=== PATIENT | female | born 1975 | race Hispanic/Latino ===

== ENCOUNTER 2016-05-23 21:47 | Inpatient (IN) | payer MEDICAID, OTHER ==
[2016-05-23 21:47] VITALS: BMI 32.5
[2016-05-23 22:14] VITALS: O2SAT 95
--- NOTE | 2016-05-23 22:21 | C.PDOC ---
History Of Present Illness <Vita Busby - Last Filed: 05/23/16 22:18> <Warren Day - Last Filed: 05/24/16 00:53> 40 y/o female comes to ED requesting detox from alcohol and xanax. pt sts last drink was last night and she took xanax earlier today. pt initially denies physical complaints, however sts she is suiciidal when i tell her there are no detox beds available, 'i will kill myself if you send me home tonight'. crisis team notified. (Vita Busby) <Vita Busby - Last Filed: 05/23/16 22:18> <Warren Day - Last Filed: 05/24/16 00:53> Time Seen by Provider: 05/23/16 22:05 Chief Complaint (Nursing): Medical Clearance Past Medical History Reviewed: Historical Data, Nursing Documentation, Vital Signs - Medical History PMH: Anxiety, Depression, Personality Disorder (Borderline), Post Traumatic Stress Disorder Denies: Alzheimer's Disease, Asthma, Atrial Fibrillation, Bronchitis, Cardia Arrhythmia, CHF, COPD, Dementia, Diabetes, Emphysema, Hepatitis, HIV, HTN, Hypercholesterolemia, Migraine, Mitral Valve Prolapse, Multiple Sclerosis, Parkinson's Disease, Peripheral Edema, Pneumonia, Pulmonary Embolism, Chronic Kidney Disease, Schizophrenia, Seizures, Sexually Transmitted Disease, Sleep Apnea, TIA Surgical History: Denies: Pacemaker Family History: States: Unknown Family Hx - Social History Hx Tobacco Use: Yes Hx Alcohol Use: Yes Hx Substance Use: Yes (DAILY) - Immunization History Hx Tetanus Toxoid Vaccination: No Hx Influenza Vaccination: No Hx Pneumococcal Vaccination: No <Vita Busby - Last Filed: 05/23/16 22:18> Vital Signs: Last Vital Signs Temp 97.7 F 05/23/16 21:59 Pulse 83 05/23/16 21:59 Resp 18 05/23/16 21:59 BP 138/85 05/23/16 21:59 Pulse Ox 95 05/23/16 23:03 - [facility] Procedures ALCOHOL DETOXIFICATION (05/02/14) INDIVID PSYCHOTHERAP NEC (07/18/14) OTHER GROUP THERAPY (12/10/13) PSYCHIAT DRUG THERAP NEC (07/18/14) Review Of Systems Constitutional: Negative for: Fever, Chills Cardiovascular: Negative for: Chest Pain, Palpitations Respiratory: Negative for: Cough, Shortness of Breath Gastrointestinal: Negative for: Nausea, Vomiting, Abdominal Pain Genitourinary: Negative for: Dysuria, Frequency Skin: Negative for: Rash <Vita Busby - Last Filed: 05/23/16 22:18> Physical Exam - Physical Exam Appears: Non-toxic, No Acute Distress Skin: Normal Color, Warm, Dry, Ecchymosis (multiple ecchymoses to upper and lower extremities) Head: Atraumatic, Normacephalic Eye(s): bilateral: Normal Inspection Oral Mucosa: Moist Chest: Symmetrical, No Deformity, No Tenderness Cardiovascular: Rhythm Regular, No Murmur Respiratory: Normal Breath Sounds, No Rales, No Rhonchi, No Stridor, No Wheezing Gastrointestinal/Abdominal: Bowel Sounds, Soft, No Tenderness Neurological/Psych: Oriented x3, Normal Speech, Normal Cognition, Normal Motor, Normal Sensation <Vita Busby - Last Filed: 05/23/16 22:18> ED Course And Treatment O2 Sat by Pulse Oximetry: 95 <Vita Busby - Last Filed: 05/23/16 22:18> - Laboratory Results Result Diagrams: 05/23/16 23:07 05/23/16 23:07 <Warren Day - Last Filed: 05/24/16 00:53> Medical Decision Making <Vita Busby - Last Filed: 05/23/16 22:18> <Warren Day - Last Filed: 05/24/16 00:53> Medical Decision Makin40 y/o female with xanax and alcohol dependence for detox; stated she was suicidal when no detox beds available. pt now on 1:1, crisis team aware and needs medical clearance for psych eval. (Vita Busby) Disposition <Vita Busby - Last Filed: 05/23/16 22:18> - Disposition Disposition Time: 00:51 <Warren Day - Last Filed: 05/24/16 00:53> - Disposition Disposition: HOSPITALIZED Condition: STABLE - Clinical Impression Clinical Impression: Bipolar affective disorder, Severe alcohol dependence
[2016-05-23 23:09] LABS: BASO # 0.1 K/uL (0.0-0.2); BASO % 0.9 % (0.0-2.0); EOS # 0.3 K/uL (0.0-0.7); EOS % 3.6 % (0.0-4.0); HEMATOCRIT 34.5 % (34.0-47.0); LYMPH # 2.1 K/uL (1.0-4.3); LYMPH % 24.9 % (20.0-40.0); MEAN CELL VOLUME 85.9 fL (81.0-99.0); MEAN CORPUSCULAR HGB CONC 33.7 g/dL (33.0-37.0); MEAN PLATELET VOLUME 7.4 fL (7.2-11.7); MONO # 0.5 K/uL (0.0-0.8); MONO % 6.4 % (0.0-10.0); RED CELL DISTRIBUTION WIDTH 17.1 % (11.5-14.5); WHITE BLOOD COUNT 8.3 K/uL (4.8-10.8)
[2016-05-23 23:18] LABS: CHLORIDE 99 mmol/L (98-107); POTASSIUM 3.7 mmol/L (3.6-5.2); SODIUM 137 mmol/L (132-148)
[2016-05-23 23:20] LABS: GFR AFRICAN-AMERICAN > 60
[2016-05-23 23:21] LABS: ALB/GLOB RATIO 1.3 (1.0-2.1); ALKALINE PHOSPHATASE 63 U/L (38-126); ALT/SGPT 40 U/L (9-52); AST/SGOT 43 U/L (14-36); BILIRUBIN,TOTAL 0.4 mg/dL (0.2-1.3); BLOOD UREA NITROGEN 8 mg/dL (7-17); CALCIUM 8.3 mg/dl (8.6-10.4); CARBON DIOXIDE 26 mmol/L (22-30); GLUCOSE,RANDOM 79 mg/dL (65-105)
[2016-05-23 23:22] LABS: ALCOHOL SERUM < 10 mg/dl (0-10)
[2016-05-24 00:45] LABS: RBC URINE 3 /hpf (0-3); URINE BACTERIA RARE (<OCC); URINE BILIRUBIN NEGATIVE (NEGATIVE); URINE BLOOD NEGATIVE (NEGATIVE); URINE COLOR Yellow (YELLOW); URINE GLUCOSE (UA) NORMAL (Normal); URINE KETONE TRACE mg/dL (NEGATIVE); URINE LEUKOCYTE ESTERASE TRACE Leu/uL (Negative); URINE PROTEIN NEGATIVE (NEGATIVE); URINE UROBILINOGEN NORMAL mg/dL (0.2-1.0); WBC URINE 7 /hpf (0-5)
[2016-05-24] MEDS ORDERED: Pneumococcal 23-Valent Vaccine IM ONE (02:38)
--- NOTE | 2016-05-24 11:32 | PCM.PSYCH ---
Initial Psychiatric Evaluation - Initial Psychiatric Evaluation Type of Admission: Voluntary Legal Status: Capacity Chief Complaint (in patient's own words): "I need detox and rehab" History of Present Illness and Precipitating Events: Pt seen, case discussed and chart reviewed. She is known from previous admissions. Pt is 40 yo female with hx of MDD, bipolar disorder, alcohol and cocaine abuse. [place] and [place] with her boyfriend. Pt states she has been binge drinking diamante and vodka and blacked out, prompting her to get help. States she wants to go to a rehab. She reports depressive sxs and felt suicidal before admission. At this time, pt is improving, wants her meds started, denies suicide ideation. Pt is motivated to find a rehab program and has contacted a few on her own. However, she still looks dishevel and somewhat anxious Past psych hx: Alcohol use d/o, Bipolar disorder, cocaine use d/o, MDD, suicide attempt in the past Family history of Psychiatric illness: Anxiety and depression. Brother committed suicide. Medical hx: Obese Current Medications: Active Medications Generic Name Dose Route Start Last Admin Trade Name Freq PRN Reason Stop Dose Admin Aripiprazole 10 mg 05/24/16 10:00 Abilify PO DAILY KIM Chlordiazepoxide 25 mg 05/24/16 06:00 05/24/16 06:43 Librium PO 05/28/16 05:59 25 mg Q6 KIM Administration Taper Chlordiazepoxide 25 mg 05/24/16 01:24 Librium PO Q6 PRN withdrawal symptom Citalopram Hydrobromide 20 mg 05/24/16 10:00 Celexa PO DAILY KIM Hydroxyzine HCl 25 mg 05/24/16 11:20 Atarax PO Q4H PRN Anxiety Ibuprofen 600 mg 05/24/16 11:21 Motrin Tab PO Q6H PRN Pain, moderate (4-7) Influenza Virus Vaccine 45 mcg 05/26/16 10:00 Afluria IM 05/26/16 10:01 .ONCE ONE Metoprolol Succinate 50 mg 05/24/16 11:30 Toprol Xl PO DAILY [facility] Oxcarbazepine 600 mg 05/24/16 11:30 Trileptal PO BID [facility] Prazosin HCl 2 mg 05/24/16 22:00 Minipress PO HS KIM Past Psychiatric History - Past Psychiatric History Previous Treatment History: Inpatient Pertinent Medical Hx (Current Medical&Sleep Prob, Allergies): Allergies Allergy/AdvReac Type Severity Reaction Status Date / Time No Known Allergies Allergy Verified 07/17/14 19:14 Aripiprazole [Abilify] 10 mg PO DAILY 09/02/14 Citalopram [celeXA] 15 mg PO DAILY 09/02/14 [place] Carbonate 300 mg PO 09/02/14 Zolpidem Tartrate [Ambien] 5 mg PO HS 09/02/14 clonazePAM [clonAZEPAM] 0.5 mg PO BID 09/02/14 traZODone [Desyrel] 100 mg PO HS 09/02/14 ARIPiprazole [Abilify] 10 mg PO DAILY #0 tab 09/13/14 Citalopram [celEXA] 40 mg PO DAILY #30 tab 09/13/14 buPROPion XL [Wellbutrin XL] 150 mg PO DAILY #30 t24 09/13/14 traZODone [Desyrel] 50 mg PO HS #0 tab 09/13/14 traZODone [Desyrel] 200 mg PO HS #0 tab 09/13/14 Review of Systems - Neurological Neurological: UNREMARKABLE - Psychiatric Psychiatric: Abnormal Sleep Pattern, Anhedonia, Anxiety, Depression. absent: Hallucinations, Homicidal Ideation, Suicidal Ideation Mental Status Examination - Personal Presentation Personal Presentation: Looks older than stated age - Affect Affect: Constricted, Depressed - Motor Activity Motor Activity: Calm - Reliability in Providing Information Reliability in Providing Information: Fair - Speech Speech: Organized - Mood Mood: Depressed - Formal Thought Process Formal Thought Process: No Impairment - Cognitive Functions Orientation: Person, Place, Time Sensorium: Alert Attention/Concentration: Easily distracted Estimate of Intelligence: Average Judgement: Intact, as evidence by: Insight regarding need for hospitalization Memory: Recent intact, as evidence by: Ability to recall events of the day, Remote intact, as evidenced by: Abilit to recall sig. life events - Risk Risk: Diminished functioning - Strength & Assets Inventory Strength & Assets Inventory: Cooperative DSM 5 DX - DSM 5 DSM 5 Diagnosis: Bipolar d/o - depressed Alcohol use d/o -severe Alcohol withdrawal Cocaine use d/o - sever r/o borderline personality d/o - Recommended/Plan of Treatment Treatment Recommendations and Plan of Treatment: 1. Alcohol use disorder -detox: Librium taper -[place] and CBT - Attend groups and activities - As needed meds 2. Bipolar Disorder -trileptal 600mg PO BID -abilify 10mg PO daily - Attend groups and activities 3. Depressive sxs -Celexa 20mg PO daily -Supportive tx and CBT - Attend groups and activities 33 min Projected ELOS: 7 days Prognosis: good with treatment - Smoking Cessation Smoking Cessation Initiated: Yes
[2016-05-24] MEDS: Metoprolol Succinate 50 mg XL Tab PO SCH (14:03)
[2016-05-25] MEDS: Metoprolol Succinate 50 mg XL Tab PO SCH (10:18)
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
[2016-05-25] MEDS ORDERED: Magnesium Hydroxide Susp 30 ml UD PO ONE (20:05)
[2016-05-26] MEDS: Metoprolol Succinate 50 mg XL Tab PO SCH (09:46)
[2016-05-26] MEDS ORDERED: Influenza Virus Vaccine 45 mcg/0.5 ml Syr IM ONE (10:00)
--- NOTE | 2016-05-26 14:07 | PCM.PYCHPN ---
Psychiatric Progress Note - Psychiatric Progress Note Patient seen today, length of contact: 15 minutes Patient Chief Complaint: "getting better" Problems Identified/Issues Discussed: Pt seen, chart reviewed, and case discussed with staff. Pt states shes feeling better, however complains of persistent difficulty sleeping. Pt also complains of dizziness and sweating, which she attributes to elevated blood pressure. Also complains of constipation. Pt denies suicidal ideation, homicidal ideation and hallucinations. Aftercare discussed, psychoeducation and support provided. Medication Change: Yes (increase toprol xl, Trazodone, clonidine prn) Medical Record Reviewed: Yes Mental Status Examination - Cognitive Function Orientation: Person, Place, Time Attention: WNL - Mood Mood: Anxious - Affect Affect: Constricted, Depressed - Speech Speech: Appropriate - Formal Thought Process Formal Thought Process: No Impairment - Suicidal Ideation Suicidal Ideation: No - Homicidal Ideation Homicidal Ideation: No Goal/Treatment Plan - Goal/Treatment Plan Need for Continued Stay: Discharge may exacerbated symptoms, Severe functional impairment Progress Toward Problem(s) and Goals/Treatment Plan: Bipolar Disorder -trileptal 600mg PO BID -abilify 10mg PO daily - Attend groups and activities Depressive sxs -Celexa 20mg PO daily -Supportive tx and CBT - Attend groups and activities Alcohol withdrawal: -Librium taper -[place] and CBT -Attend groups and activities -As needed meds Insomnia -increase Trazodone to 150mg QHS PRN HTN -add clonidine 0.1mg PO Q4H -Prazosin HCl 2mg PO daily -toprol xl 100 mg now Estimated Date of D/C: 05/29/16
[2016-05-27] MEDS: Metoprolol Succinate 100 mg XL Tab PO SCH (10:53)
--- NOTE | 2016-05-27 15:09 | PCM.PYCHPN ---
Psychiatric Progress Note - Psychiatric Progress Note Patient seen today, length of contact: 15 minutes Patient Chief Complaint: "I feel better" Problems Identified/Issues Discussed: Pt seen, chart reviewed, and case discussed with staff. Pt states she feels better, however complains of consistently poor sleep and consitpation. Denies chills, diaphoresis, abdominal pain, nausea, vomiting, suicidal ideation, homicidal ideation, and hallucinations. Today, pt looks kempt. Aftercare discussed, psychoeducation and support provided. Medication Change: Yes (detox changes daily) Medical Record Reviewed: Yes Mental Status Examination - Cognitive Function Orientation: Person, Place, Situation, Time Memory: Intact Attention: WNL Concentration: WNL Association: WNL Fund of Knowledge: WNL - Mood Mood: Anxious - Affect Affect: Constricted, Flat - Speech Speech: Appropriate - Formal Thought Process Formal Thought Process: No Impairment - Suicidal Ideation Suicidal Ideation: No - Homicidal Ideation Homicidal Ideation: No Goal/Treatment Plan - Goal/Treatment Plan Need for Continued Stay: Discharge may exacerbated symptoms, Severe functional impairment Progress Toward Problem(s) and Goals/Treatment Plan: Bipolar Disorder -trileptal 600mg PO BID -abilify 10mg PO daily -Attend groups and activities Depressive sxs -Celexa 20mg PO daily -Supportive tx and CBT -Attend groups and activities Alcohol withdrawal: -Librium taper -[place] and CBT -Attend groups and activities -As needed meds Insomnia -Trazodone to 150mg QHS PRN HTN -add clonidine 0.1mg PO Q4H -Prazosin HCl 2mg PO daily -toprol xl 100 mg now Estimated Date of D/C: 05/29/16 - Smoking Cessation Smoking Cessation Initiated: No
[2016-05-28] MEDS: Metoprolol Succinate 100 mg XL Tab PO SCH (09:57)
--- NOTE | 2016-05-28 15:10 | PCM.PYCHPN ---
Psychiatric Progress Note - Psychiatric Progress Note Patient seen today, length of contact: 15 minutes Patient Chief Complaint: "I'm doing well" Problems Identified/Issues Discussed: Pt seen, chart reviewed, and case discussed with staff. Pt states she feels well. has complains of body aches from "sleeping wrong" which improved with motrin, as well as vaginal discharge and burning on urination. Denies hematuria, frequency, fever, chills, diaphoresis, abdominal pain, nausea, vomiting, suicidal ideation, homicidal ideation, and hallucinations. Aftercare was discussed: pt will be calling [place] [facility] to secured ike money for rehab. Aftercare discussed, psychoeducation and support provided. Medication Change: Yes (add Ducolax) Medical Record Reviewed: Yes Mental Status Examination - Cognitive Function Orientation: Place, Situation, Time Memory: Intact Attention: WNL Concentration: WNL Association: WNL Fund of Knowledge: WNL - Mood Mood: Anxious - Affect Affect: Flat - Speech Speech: Appropriate - Formal Thought Process Formal Thought Process: No Impairment - Suicidal Ideation Suicidal Ideation: No - Homicidal Ideation Homicidal Ideation: No Goal/Treatment Plan - Goal/Treatment Plan Need for Continued Stay: Discharge may exacerbated symptoms, Severe functional impairment Progress Toward Problem(s) and Goals/Treatment Plan: Bipolar Disorder -trileptal 600mg PO BID -abilify 10mg PO daily -Attend groups and activities Depressive sxs -Celexa 20mg PO daily -Supportive tx and CBT -Attend groups and activities Alcohol withdrawal: -Librium taper -[place] and CBT -Attend groups and activities -As needed meds Insomnia -Trazodone to 150mg QHS PRN HTN -add clonidine 0.1mg PO Q4H -Prazosin HCl 2mg PO daily -toprol xl 100 mg now Estimated Date of D/C: 05/29/16
[2016-05-29 07:43] VITALS: BP 136/85; PULSE 70; RESP 20; TEMP 97.5
[2016-05-29] MEDS: Metoprolol Succinate 100 mg XL Tab PO SCH (10:07)
--- NOTE | 2016-05-29 13:30 | PCM.PYCHDC ---
Mental Status Examination - Mental Status Examination Orientation: Person, Place, Situation, Time Memory: Intact Mood: Neutral Affect: Other (Appropriate ) Speech: Appropriate Attention: WNL Concentration: WNL Association: WNL Fund of Knowledge: WNL Formal Thought Process: No Impairment Description of patient's judgement and insight: Fair Suicidal Ideation: No Current Homicidal Ideation?: No Discharge Summary - Discharge Note Reason for Hospitalization: Alcohol use disorder Cocaine use disorder Bipolar disorder Psychiatric History (includes Medical, Family, Personal Hx): Alcohol use disorder, cocaine use disorder, bipolar disorder, hypertension Laboratory Data: Reviewed Consultations:: List each consultation separately and include: 1. Reason for request. 2. Findings. 3. Follow-up Summary of Hospital Course include:: 1. Description of specific treatment plan utilized for patients during their course of treatmen. 2. Summarize the time- course for resolution of acute symptoms and/or regressed behaviors. 3. Describe issues identified and worked on during hospitalization. 4. Describe medication utilized. 5. Describe medical problems identified and treated. 6. Reassessment of suicide risk Summary of Hospital Course: Pt seen, case discussed and chart reviewed. She is known from previous admissions. Pt is 40 yo female with hx of MDD, bipolar disorder, alcohol and cocaine abuse. [place] her boyfriend. Pt states she has been binge drinking diamante and vodka and blacked out, prompting her to get help. States she wants to go to a rehab. She reports depressive sxs and felt suicidal before admission. At this time, pt is improving, wants her meds started, denies suicide ideation. Pt is motivated to find a rehab program and has contacted a few on her own. However, she still looks dishevel and somewhat anxious Past psych hx: Alcohol use d/o, Bipolar disorder, cocaine use d/o, MDD, suicide attempt in the past Family history of Psychiatric illness: Anxiety and depression. Brother committed suicide. Medical hx: Obese During her stay in the hospital, patient was treated with Librium and other supportive medications. Patient was also started on her other psych medications. With the above treatment patient started feeling better, with no adverse affects of the medication. Patient tolerated treatment very well. Today patient was ready stable with no adverse affects no withdrawal symptoms. Patient was ready for discharge. At the time of evaluation and discharge, patient was awake alert oriented 3, had no delusions, no auditory or visual hallucinations, no suicidal ideations or homicidal ideations. Patient was discharged in a stable condition. Patient will go to [facility], for follow-up care after discharge from the hospital. - Final Diagnosis (DSM 5) Condition upon Discharge: STABLE Disposition: HOME/ ROUTINE Follow-up Treatment Plan: At [facility] Prescriptions/Medication Reconciliation: ARIPiprazole [Abilify] 15 mg PO DAILY #30 tab Docusate [Colace] 100 mg PO BID #60 cap traZODone [Desyrel] 200 mg PO HS PRN #30 tab PRN Reason: Insomnia Prazosin HCl [Minipress] 2 mg PO HS #30 cap Citalopram [celEXA] 20 mg PO DAILY #30 tab - Smoking Cessation Smoking Cessation Medication prescribed: No - Antipsychotic Medications Pt discharged on 2 or more routine antipsychotic medications: No
== END 2016-05-29 13:53 | disposition home or self-care (01) | DRG 751 ==
LOC: C.ER 21:47 → C.5E 05-24 00:50
PROVIDERS: ADMIT Psychiatry & Neurology Psychiatry; ATTEND Psychiatry & Neurology Psychiatry
PROC: HZ2ZZZZ Detoxification Services for Substance Abuse Treatment (ICD-10-PCS; principal; 2016-05-24)
DX: F10.239 Alcohol dependence with withdrawal, unspecified (principal); F14.90 Cocaine use, unspecified, uncomplicated; I10 Essential (primary) hypertension; F31.9 Bipolar disorder, unspecified; F60.3 Borderline personality disorder; K59.00 Constipation, unspecified; Z87.891 Personal history of nicotine dependence; N89.8 Other specified noninflammatory disorders of vagina; G47.00 Insomnia, unspecified; E66.9 Obesity, unspecified

== ENCOUNTER 2016-06-14 11:56 | Inpatient (IN) | payer OTHER ==
[2016-06-14 11:57] VITALS: BMI 32.5
--- NOTE | 2016-06-14 12:56 | C.PDOC ---
History Of Present Illness Patient is a 40 year old female who presents to the ER requesting detox from xanax, cocaine, and ETOH. Patient's last use was prior to arrival. Patient is compliant with medications. Has no physical complaints at this time. REQUESTING DETOX XANAX, COCAINE, ETOH. LAST USE [employer]. PS COMPLIANT W MEDS EXAM NEG Time Seen by Provider: 06/14/16 12:52 Chief Complaint (Nursing): Substance Abuse History Per: Patient History/Exam Limitations: no limitations Onset/Duration Of Symptoms: Hrs Current Symptoms Are (Timing): Still Present Modifying Factor(s): Alcohol, Cocaine, Other (Xanax) Past Medical History Reviewed: Historical Data, Nursing Documentation, Vital Signs Vital Signs: Last Vital Signs Temp 97.7 F 06/14/16 12:04 Pulse 91 H 06/14/16 12:04 Resp 20 06/14/16 12:04 BP 135/90 06/14/16 12:04 Pulse Ox 96 06/14/16 15:41 - Medical History PMH: Anxiety, Bipolar Disorder, Depression, HTN, Personality Disorder ( Borderline), Post Traumatic Stress Disorder Surgical History: No Surg Hx - [facility] Procedures ALCOHOL DETOXIFICATION (05/02/14) DETOXIFICATION SERVICES FOR SUBSTANCE ABUSE TREATMENT (05/24/16) INDIVID PSYCHOTHERAP NEC (07/18/14) OTHER GROUP THERAPY (12/10/13) PSYCHIAT DRUG THERAP NEC (07/18/14) Family History: States: Unknown Family Hx - Social History Hx Tobacco Use: Yes Hx Alcohol Use: No Hx Substance Use: Yes - Immunization History Hx Tetanus Toxoid Vaccination: No Hx Influenza Vaccination: No Hx Pneumococcal Vaccination: No Review Of Systems Except As Marked, All Systems Reviewed And Found Negative. Gastrointestinal: Negative for: Nausea, Vomiting Physical Exam - Physical Exam Appears: Well, Non-toxic Skin: Normal Color, Warm, Dry Head: Atraumatic, Normacephalic Oral Mucosa: Moist Chest: Symmetrical, No Tenderness Cardiovascular: Rhythm Regular, No Murmur Respiratory: Other (No acute respiratory distress. Patient speaking in complete sentences.) Gastrointestinal/Abdominal: Soft, No Tenderness Back: No CVA Tenderness Neurological/Psych: Oriented x3, Normal Speech, Normal Cognition ED Course And Treatment - Laboratory Results Result Diagrams: 06/14/16 14:31 06/14/16 14:31 O2 Sat by Pulse Oximetry: 96 (Room air) Pulse Ox Interpretation: Normal Progress Note: Blood work ordered. Reevaluation Time: 15:41 Reassessment Condition: Unchanged (MED CLEAR, CRISIS NOTIFIED) Disposition Discussed With Dr.: Branden Steiner Counseled Patient/Family Regarding: Studies Performed, Diagnosis - Disposition Disposition: HOSPITALIZED Disposition Time: 15:59 Condition: STABLE - POA Present On Arrival: None - Clinical Impression Clinical Impression: Bipolar disorder, Polysubstance (excluding opioids) dependence - Scribe Statement The provider has reviewed the documentation as recorded by the Scribe Jose Morales All medical record entries made by the Scribe were at my direction and personally dictated by me. I have reviewed the chart and agree that the record accurately reflects my personal performance of the history, physical exam, medical decision making, and the department course for this patient. I have also personally directed, reviewed, and agree with the discharge instructions and disposition. Decision To Admit - Pt Status Changed To: Hospital Disposition Of: Inpatient - Admit Certification Admit to Inpatient:: After my assessment, the patient will require hospitalization for at least two midnights. This is because of the severity of symptoms shown, intensity of services needed, and/or the medical risk in this patient being treated as an outpatient. - InPatient: Physician Admission Certification: I certify that this patient requires 2 or more midnights of care for the following reason:: SEE NOTE - . Bed Request Type: Psychiatry Admitting Physician: Branden Steiner Patient Diagnosis: Bipolar disorder, Polysubstance (excluding opioids) dependence
[2016-06-14 14:42] LABS: MONO # 0.5 K/uL (0.0-0.8); MONO % 6.5 % (0.0-10.0); NRBC % 0.1 % (0.0-2.0)
[2016-06-14 14:45] LABS: RBC URINE 1 /hpf (0-3); URINE BACTERIA RARE (<OCC); URINE BILIRUBIN NEGATIVE (NEGATIVE); URINE BLOOD NEGATIVE (NEGATIVE); URINE COLOR Yellow (YELLOW); URINE GLUCOSE (UA) NORMAL (Normal); URINE KETONE NEGATIVE (NEGATIVE); URINE LEUKOCYTE ESTERASE TRACE Leu/uL (Negative); URINE PROTEIN NEGATIVE (NEGATIVE); URINE UROBILINOGEN NORMAL mg/dL (0.2-1.0); WBC URINE 4 /hpf (0-5)
[2016-06-14 14:50] LABS: BASO % 0.4 % (0.0-2.0); EOS # 0.5 K/uL (0.0-0.7); HEMATOCRIT 38.9 % (34.0-47.0); LYMPH # 2.1 K/uL (1.0-4.3); LYMPH % 27.6 % (20.0-40.0); MEAN CORPUSCULAR HEMOGLOBIN 30.1 pg (27.0-31.0); MEAN CORPUSCULAR HGB CONC 34.2 g/dL (33.0-37.0); MEAN PLATELET VOLUME 7.3 fL (7.2-11.7); RED CELL DISTRIBUTION WIDTH 16.9 % (11.5-14.5); WHITE BLOOD COUNT 7.7 K/uL (4.8-10.8)
[2016-06-14 15:15] LABS: CHLORIDE 100 mmol/L (98-107)
[2016-06-14 15:16] LABS: POTASSIUM 3.8 mmol/L (3.6-5.2); SODIUM 136 mmol/L (132-148)
[2016-06-14 15:18] LABS: ALB/GLOB RATIO 1.3 (1.0-2.1); AST/SGOT 32 U/L (14-36); BILIRUBIN,TOTAL 0.3 mg/dL (0.2-1.3); BLOOD UREA NITROGEN 13 mg/dL (7-17); CARBON DIOXIDE 23 mmol/L (22-30); GFR AFRICAN-AMERICAN > 60; TOTAL PROTEIN 7.5 g/dL (6.3-8.3)
[2016-06-14 15:19] LABS: ALCOHOL SERUM < 10 mg/dl (0-10); ALKALINE PHOSPHATASE 81 U/L (38-126); ALT/SGPT 28 U/L (9-52); GLUCOSE,RANDOM 83 mg/dL (65-105)
[2016-06-15] MEDS: Multiple Vitamins Tab PO SCH (09:07)
--- NOTE | 2016-06-15 10:21 | PCM.PSYCH ---
Initial Psychiatric Evaluation - Initial Psychiatric Evaluation Type of Admission: Voluntary Legal Status: Capacity Chief Complaint (in patient's own words): i was feeling depressed History of Present Illness and Precipitating Events: Pt is a 40 yo F who lives with her boyfriend between and [place], is unemployed, collects SSDI, and has one daughter (22 years old, lives with paternal grandmother). Pt has a history of bipolar disorder, borderline personality disorder, PTSD, alcohol use disorder, cocaine use disorder and benzodiazepine use disorder. Pt is known from previous admissions. She was discharged from [facility] 17 days ago for depressive symptoms and alcohol withdrawal. Pt's plan at the time of discharge was to follow up with an IOP in [place]. However, she returned to [place] after one day and failed to follow up properly. Today, pt is complaining of manic symptoms and alcohol and benzo withdrawal. Pt currently experiencing manic symptoms including racing thoughts, distractibility , and flight of ideas. She reports paranoia and appeared disorganized and internally preoccupied. She appeared disheveled and unkempt. She also reports depressed mood, and feelings of hopelessness and helplessness. Pt reports a long history of alcohol use since her teen years. States she relapsed one week ago and has been ingesting 1 pint of vodka per day for the past week. Pt's last drink was 5AM yesterday morning. Pt also admits to using Xanax and cocaine for a few years. States she has been using approximately 1-2.25mg of Xanax per day for the past week, as well as, $100 of cocaine (snort) and 5 hits of crack cocaine in the past 2 days. Notes that she has not taken her antipsychotic medication for the past 2 days. Pt denies all other substance abuse. History of 7-8 detoxes and 1 rehab. Pt complaining of shaking, anxiety and restlessness. Denies diaphoresis, nausea, vomiting, abdominal pain, tachycardia, and insomnia. States she is unsure if she has ever had a seizure. Pt's plan is to attend [facility] following discharge. Psych Hx: Bipolar disorder, borderline personality disorder, PTSD, alcohol use disorder, benzodiazepine use disorder, cocaine use disorder. Pt has multiple inpatient psych admissions. Last admission was from 05/24-05/29/16 at [facility] for depressive symptoms and alcohol withdrawal. Pt has history of prior suicide attempt. Family Psych Hx: Mother- unspecified mental illness, alcohol use disorder. Father-alcohol use disorder. Brother committed suicide. PMHx: HTN Meds: Trileptal 600mg BID, Celexa 20mg daily, trazodone 250 QHS, minipress 1mg AM, minipress 2mg QHS, Metoprolol succinate 100mg daily. Current Medications: Active Medications Generic Name Dose Route Start Last Admin Trade Name Freq PRN Reason Stop Dose Admin Aripiprazole 15 mg 06/15/16 10:00 06/15/16 09:07 Abilify PO 15 mg DAILY KIM Administration Chlordiazepoxide 25 mg 06/14/16 16:41 06/14/16 21:41 Librium PO 25 mg Q4H PRN Administration Alcohol Withdrawal Chlordiazepoxide 25 mg 06/14/16 18:00 06/15/16 06:42 Librium PO 06/18/16 17:59 25 mg Q6 KIM Administration Taper Citalopram Hydrobromide 20 mg 06/15/16 10:00 06/15/16 09:07 Celexa PO 20 mg DAILY KIM Administration Clonidine HCl 0.1 mg 06/14/16 16:41 Catapres PO Q4H PRN Symptoms of alcohol withdrawl Folic Acid 1 mg 06/15/16 10:00 06/15/16 09:07 Folic Acid PO 1 mg DAILY KIM Administration Hydroxyzine HCl 25 mg 06/14/16 16:39 Atarax PO Q4H PRN Anxiety Ibuprofen 600 mg 06/14/16 16:39 06/14/16 17:38 Motrin Tab PO 600 mg Q6H PRN Administration Pain, moderate (4-7) Multivitamins 1 tab 06/15/16 10:00 06/15/16 09:07 Hexavitamin PO 1 tab DAILY KIM Administration Prazosin HCl 2 mg 06/14/16 22:00 06/14/16 21:41 Minipress PO 2 mg HS KIM Administration Thiamine HCl 100 mg 06/15/16 10:00 06/15/16 09:07 Vitamin B1 Tab PO 100 mg DAILY KIM Administration Trazodone HCl 100 mg 06/14/16 22:00 06/14/16 21:41 Desyrel PO 100 mg HS KIM Administration Past Psychiatric History - Past Psychiatric History Previous Treatment History: Inpatient Pertinent Medical Hx (Current Medical&Sleep Prob, Allergies): Allergies Allergy/AdvReac Type Severity Reaction Status Date / Time hydroxyzine HCl [From Atarax] Allergy RASH Verified 06/14/16 12:04 lithium Allergy Verified 06/14/16 12:04 Aripiprazole [Abilify] 10 mg PO DAILY 09/02/14 Citalopram [celeXA] 15 mg PO DAILY 09/02/14 [place] Carbonate 300 mg PO 09/02/14 Zolpidem Tartrate [Ambien] 5 mg PO HS 09/02/14 clonazePAM [clonAZEPAM] 0.5 mg PO BID 09/02/14 traZODone [Desyrel] 100 mg PO HS 09/02/14 ARIPiprazole [Abilify] 10 mg PO DAILY #0 tab 09/13/14 Citalopram [celEXA] 40 mg PO DAILY #30 tab 09/13/14 buPROPion XL [Wellbutrin XL] 150 mg PO DAILY #30 t24 09/13/14 traZODone [Desyrel] 50 mg PO HS #0 tab 09/13/14 traZODone [Desyrel] 200 mg PO HS #0 tab 09/13/14 ARIPiprazole [Abilify] 15 mg PO DAILY #30 tab 05/29/16 Citalopram [celEXA] 20 mg PO DAILY #30 tab 05/29/16 Docusate [Colace] 100 mg PO BID #60 cap 05/29/16 Prazosin HCl [Minipress] 2 mg PO HS #30 cap 05/29/16 traZODone [Desyrel] 200 mg PO HS PRN #30 tab 05/29/16 Review of Systems - Constitutional Constitutional: absent: Fever, Chills, Sweats - Gastrointestinal Gastrointestinal: absent: Abdominal Pain, Cramping, Diarrhea, Nausea, Vomiting - Neurological Neurological: Tremor - Psychiatric Psychiatric: Anxiety, Depression, Memory Loss, Mood Swings, Paranoia. absent: Auditory Hallucinations, Confusion, Suicidal Ideation, Visual Hallucinations, Tactile Hallucinations Mental Status Examination - Personal Presentation Personal Presentation: Looks stated age Additional comments: unkempt - Affect Affect: Broad - Motor Activity Motor Activity: Psychomotor Agitation - Reliability in Providing Information Reliability in Providing Information: Fair - Speech Speech: Organized - Mood Mood: Anxious - Formal Thought Process Formal Thought Process: No Impairment - Hallucinations/Delusions Delusions: Persecution - Obsessions/Compulsions Obsessions: No Compulsions: No - Cognitive Functions Orientation: Person, Place, Situation, Time Sensorium: Alert Attention/Concentration: Attentive Abstract Thinking: [place] Estimate of Intelligence: Below average Judgement: Imparied, as evidence by: Poor judgement, Imparied, as evidence by: Lack of insight into illness Memory: Recent intact, as evidence by: Ability to recall events of the day - Risk Risk: Withdrawal, Diminished functioning - Strength & Assets Inventory Strength & Assets Inventory: Other (Significant other) DSM 5 DX - DSM 5 DSM 5 Diagnosis: Bipolar d/o mixed severe with psychotic features Alcohol use d/o -severe Alcohol withdrawal Benzodiazepine use disorder-severe Cocaine use d/o - severe r/o borderline personality d/o - Recommended/Plan of Treatment Treatment Recommendations and Plan of Treatment: Bipolar d/o - mixed Severe with psychotic features CBT Psychoeducation Supportive therapy, group therapy, individual therapy Abilify 15mg PO daily Citalopram 20mg PO daily Trileptal 300mg PO BID Alcohol use disorder-severe CBT Psychoeducation Supportivetherapy, individual therapy use [place] for abstinence Alcohol withdrawal CBT Psychoeducation Supportivetherapy, individual therapy Librium taper Librium as needed clonidine 0.1mg PO Q4H PRN Folic acid/thiamine/multivitamin Benzodiazepine use disorder-moderate Atarax 25mg PO Q4H PRN Monitor signs and symptoms [place] for abstinence Cocaine [place] for abstinence HTN Minipress 2mg PO QHS
[2016-06-15] MEDS ORDERED: Aluminum Hydroxide/Magnesium Hydroxide Susp (30 mL) PO PRN (15:52)
[2016-06-16] MEDS: Multiple Vitamins Tab PO SCH (09:39)
--- NOTE | 2016-06-16 09:56 | PCM.PYCHPN ---
Psychiatric Progress Note - Psychiatric Progress Note Patient seen today, length of contact: 15 min Patient Chief Complaint: i was feeling agitated Problems Identified/Issues Discussed: Patient seen and evaluated, chart reviewed and discussed with the nurse. Patient reports irritability and agitation, racing of thoughts and flight of ideas. She still reports withdrawal symptoms including shakes, anxiety, headaches and sweating. She still reports persecutory delusions. However she appears more organized and kempt than yesterday. She is taking medication and denies any side effects. Supportive therapy and psychoeducation were given Medication Change: Yes (Increase Trileptal) Medical Record Reviewed: Yes Mental Status Examination - Cognitive Function Orientation: Person, Place, Situation, Time Memory: Intact Attention: WNL Concentration: Poor Association: WNL Fund of Knowledge: Poor - Mood Mood: Anxious - Affect Affect: Broad - Speech Speech: Soft - Formal Thought Process Formal Thought Process: Delusions, Flight of ideas, Circumstantial - Suicidal Ideation Suicidal Ideation: No - Homicidal Ideation Homicidal Ideation: No Goal/Treatment Plan - Goal/Treatment Plan Need for Continued Stay: Discharge may exacerbated symptoms, Severe functional impairment Progress Toward Problem(s) and Goals/Treatment Plan: Bipolar d/o - mixed Severe with psychotic features CBT Psychoeducation Supportive therapy, group therapy, individual therapy Abilify 20mg PO daily Citalopram 20mg PO daily Trileptal 300mg PO daily Trileptal 600mg PO QPM Alcohol use disorder-severe CBT Psychoeducation Supportivetherapy, individual therapy use [place] for abstinence Alcohol withdrawal CBT Psychoeducation Supportivetherapy, individual therapy Librium taper Librium as needed clonidine 0.1mg PO Q4H PRN Folic acid/thiamine/multivitamin Benzodiazepine use disorder-moderate Librium taper Monitor signs and symptoms [place] for abstinence Cocaine use disorder moderate [place] for abstinence HTN Minipress 2mg PO QHS - Smoking Cessation Smoking Cessation Initiated: No
[2016-06-16] MEDS ORDERED: Pneumococcal 23-Valent Vaccine IM ONE (10:00)
[2016-06-17] MEDS: Multiple Vitamins Tab PO SCH (10:17)
--- NOTE | 2016-06-17 17:11 | PCM.PYCHPN ---
Psychiatric Progress Note - Psychiatric Progress Note Patient seen today, length of contact: 15 min Patient Chief Complaint: "I need 200mg Trazodone and 600mg Trileptal AM and 600mg PM" Problems Identified/Issues Discussed: Pt was seen, chart reviewed and case discussed with staff. Pt compliant with medication without adverse effects. Complains of continued anxiety and restlessness. States she awoke at 4:30am today and could not fall back asleep. Denies suicidal ideation, homicidal ideation, visual and auditory hallucination. Today, pt's symptoms are slightly improved. Pt requests increasing her medication. Psychoeducation and support given. Medication Change: Yes (Increase Trazodone) Medical Record Reviewed: Yes Mental Status Examination - Cognitive Function Orientation: Person, Place, Situation, Time Memory: Intact Attention: WNL Concentration: Poor Association: WNL Fund of Knowledge: Poor - Mood Mood: Anxious - Affect Affect: Broad - Speech Speech: Soft - Formal Thought Process Formal Thought Process: Delusions, Flight of ideas, Circumstantial - Suicidal Ideation Suicidal Ideation: No - Homicidal Ideation Homicidal Ideation: No Goal/Treatment Plan - Goal/Treatment Plan Need for Continued Stay: Discharge may exacerbated symptoms, Severe functional impairment Progress Toward Problem(s) and Goals/Treatment Plan: Continue meds Increase Trazodone Support and psychoed Attend groups [place] for abstinence Referred to [facility] Estimated Date of D/C: 06/22/16
[2016-06-18] MEDS: Multiple Vitamins Tab PO SCH (09:47)
--- NOTE | 2016-06-18 17:05 | PCM.PYCHPN ---
Psychiatric Progress Note - Psychiatric Progress Note Patient seen today, length of contact: 17 min Patient Chief Complaint: "I'm okay" Problems Identified/Issues Discussed: The pt is seen, chart reviewed, case discussed. Pt mood is positive today. Pt slept well the night before. She admits to headaches. Pt denies thoughts of hurting herself or others. Pt denies auditory or visual hallucinations. Pt plan is to attend [facility] on Tuesday, she is accepted. After care discussed, support and psychoeducation given. Medication Change: No Medical Record Reviewed: Yes Mental Status Examination - Cognitive Function Orientation: Person, Place, Situation, Time Memory: Intact Attention: WNL Concentration: Poor Association: WNL Fund of Knowledge: Poor - Mood Mood: Anxious - Affect Affect: Broad - Speech Speech: Appropriate - Formal Thought Process Formal Thought Process: No Impairment - Suicidal Ideation Suicidal Ideation: No - Homicidal Ideation Homicidal Ideation: No Goal/Treatment Plan - Goal/Treatment Plan Need for Continued Stay: Discharge may exacerbated symptoms Progress Toward Problem(s) and Goals/Treatment Plan: Bipolar d/o - mixed Severe with psychotic features CBT Psychoeducation Supportive therapy, group therapy, individual therapy Abilify 20mg PO daily Citalopram 20mg PO daily Trileptal 300mg PO daily Trileptal 600mg PO QPM Alcohol use disorder-severe CBT Psychoeducation Supportivetherapy, individual therapy use [place] for abstinence Alcohol withdrawal CBT Psychoeducation Supportivetherapy, individual therapy Librium taper clonidine 0.1mg PO Q4H PRN Folic acid/thiamine/multivitamin Benzodiazepine use disorder-moderate Librium taper Monitor signs and symptoms [place] for abstinence Cocaine use disorder moderate [place] for abstinence HTN Minipress 2mg PO QHS Estimated Date of D/C: 06/21/16 - Smoking Cessation Smoking Cessation Initiated: No
[2016-06-19] MEDS: Multiple Vitamins Tab PO SCH (09:21)
--- NOTE | 2016-06-19 12:54 | PCM.PYCHPN ---
Psychiatric Progress Note - Psychiatric Progress Note Patient seen today, length of contact: 17 min Patient Chief Complaint: i M feeling Anxious Problems Identified/Issues Discussed: Patient seen and evaluated, chart reviewed and discussed with the nurse. Patient reports somewhat improvement in her anxiety and agitation. she reports that medications are working well and she has improvement in the racing of thoughts. She reports improvement in the withdrawal symptoms. She is taking medication and denies any side effects. Supportive therapy and psychoeducation were given Medication Change: No Medical Record Reviewed: Yes Mental Status Examination - Cognitive Function Orientation: Person, Place, Situation, Time Memory: Intact Attention: WNL Concentration: Poor Association: WNL Fund of Knowledge: Poor - Mood Mood: Anxious - Affect Affect: Broad - Speech Speech: Appropriate - Formal Thought Process Formal Thought Process: No Impairment - Suicidal Ideation Suicidal Ideation: No - Homicidal Ideation Homicidal Ideation: No Goal/Treatment Plan - Goal/Treatment Plan Need for Continued Stay: Discharge may exacerbated symptoms Progress Toward Problem(s) and Goals/Treatment Plan: Bipolar d/o - mixed Severe with psychotic features CBT Psychoeducation Supportive therapy, group therapy, individual therapy Abilify 20mg PO daily Citalopram 20mg PO daily Trileptal 300mg PO daily Trileptal 600mg PO QPM Alcohol use disorder-severe CBT Psychoeducation Supportivetherapy, individual therapy use [place] for abstinence Alcohol withdrawal CBT Psychoeducation Supportivetherapy, individual therapy Librium taper Librium as needed clonidine 0.1mg PO Q4H PRN Folic acid/thiamine/multivitamin Benzodiazepine use disorder-moderate Librium taper Monitor signs and symptoms [place] for abstinence Cocaine use disorder moderate [place] for abstinence HTN Minipress 2mg PO QHS Estimated Date of D/C: 06/21/16
[2016-06-20 07:34] VITALS: O2SAT 99
[2016-06-20] MEDS: Multiple Vitamins Tab PO SCH (09:16)
--- NOTE | 2016-06-20 22:18 | PCM.PYCHPN ---
Psychiatric Progress Note - Psychiatric Progress Note Patient seen today, length of contact: 16 min Patient Chief Complaint: i m feeling better Problems Identified/Issues Discussed: Patient seen and evaluated, chart reviewed and discussed with the nurse. Today patient reports improvement in her mood and psychosis. Reports improvement in the withdrawal symptoms. She appears more organized and kempt than yesterday. She is taking medication and denies any side effects. Supportive therapy and psychoeducation were given Medication Change: No Medical Record Reviewed: Yes Mental Status Examination - Cognitive Function Orientation: Person, Place, Situation, Time Memory: Intact Attention: WNL Concentration: Poor Association: WNL Fund of Knowledge: Poor - Mood Mood: Anxious - Affect Affect: Broad - Speech Speech: Appropriate - Formal Thought Process Formal Thought Process: No Impairment - Suicidal Ideation Suicidal Ideation: No - Homicidal Ideation Homicidal Ideation: No Goal/Treatment Plan - Goal/Treatment Plan Need for Continued Stay: Discharge may exacerbated symptoms Progress Toward Problem(s) and Goals/Treatment Plan: Bipolar d/o - mixed Severe with psychotic features CBT Psychoeducation Supportive therapy, group therapy, individual therapy Abilify 20mg PO daily Citalopram 20mg PO daily Trileptal 300mg PO daily Trileptal 600mg PO QPM Alcohol use disorder-severe CBT Psychoeducation Supportivetherapy, individual therapy use [place] for abstinence Alcohol withdrawal CBT Psychoeducation Supportivetherapy, individual therapy Librium taper Librium as needed clonidine 0.1mg PO Q4H PRN Folic acid/thiamine/multivitamin Benzodiazepine use disorder-moderate Librium taper Monitor signs and symptoms [place] for abstinence Cocaine use disorder moderate [place] for abstinence HTN Minipress 2mg PO QHS Estimated Date of D/C: 06/21/16 - Smoking Cessation Smoking Cessation Initiated: No
[2016-06-21] MEDS: Multiple Vitamins Tab PO SCH (09:54)
[2016-06-21 11:05] VITALS: RESP 20
--- NOTE | 2016-06-21 14:20 | PCM.PYCHPN ---
Psychiatric Progress Note - Psychiatric Progress Note Patient seen today, length of contact: 17 min Patient Chief Complaint: i was feeling agitated Problems Identified/Issues Discussed: Patient seen and evaluated, chart reviewed and discussed with the nurse. Patient reports that she is feeling better than yesterday. She says that her appetite is good and that she sleeps well at night. Patient still reports agitation, racing thoughts and flight of ideas. She denies shakes but does admit to anxiety, headache and sweating. Patient still admits to persecutory delusions. Patient is taking her medication and denies any side effects. Medication Change: No Medical Record Reviewed: Yes Mental Status Examination - Cognitive Function Orientation: Person, Place, Situation, Time Memory: Intact Attention: WNL Concentration: Poor Association: WNL Fund of Knowledge: Poor - Mood Mood: Anxious - Affect Affect: Broad - Speech Speech: Appropriate - Formal Thought Process Formal Thought Process: No Impairment - Suicidal Ideation Suicidal Ideation: No - Homicidal Ideation Homicidal Ideation: No Goal/Treatment Plan - Goal/Treatment Plan Need for Continued Stay: Discharge may exacerbated symptoms Progress Toward Problem(s) and Goals/Treatment Plan: Bipolar d/o - mixed Severe with psychotic features CBT Psychoeducation Supportive therapy, group therapy, individual therapy Abilify 20mg PO daily Citalopram 20mg PO daily Trileptal 300mg PO daily Trileptal 600mg PO QPM Alcohol use disorder-severe CBT Psychoeducation Supportivetherapy, individual therapy use [place] for abstinence Alcohol withdrawal CBT Psychoeducation Supportivetherapy, individual therapy Librium taper Librium as needed clonidine 0.1mg PO Q4H PRN Folic acid/thiamine/multivitamin Benzodiazepine use disorder-moderate Librium taper Monitor signs and symptoms [place] for abstinence Cocaine use disorder moderate [place] for abstinence HTN Minipress 2mg PO QHS Estimated Date of D/C: 06/21/16
[2016-06-21] MEDS ORDERED: Metoprolol Succinate 100 mg XL Tab PO SCH (15:15)
[2016-06-22 07:56] VITALS: BP 128/87; PULSE 69; TEMP 97.5
--- NOTE | 2016-06-22 10:35 | PCM.PYCHDC ---
Mental Status Examination - Mental Status Examination Orientation: Person, Place, Situation, Time Memory: Intact Mood: Neutral Affect: Constricted Speech: Soft Attention: WNL Concentration: WNL Association: WNL Fund of Knowledge: WNL Formal Thought Process: No Impairment Description of patient's judgement and insight: good, fair Psychotic Thoughts and Behaviors: denies any AVH Suicidal Ideation: No Current Homicidal Ideation?: No Discharge Summary - Discharge Note Reason for Hospitalization: Pt is a 40 yo F who lives with her boyfriend between [place] and [place], is unemployed, collects [employer], and has one daughter (22 years old, lives with paternal grandmother). Pt has a history of bipolar disorder, borderline personality disorder, PTSD, alcohol use disorder, cocaine use disorder and benzodiazepine use disorder. Pt is known from previous admissions. She was discharged from [facility] 17 days ago for depressive symptoms and alcohol withdrawal. Pt's plan at the time of discharge was to follow up with an IOP in [place]. However, she returned to [place] after one day and failed to follow up properly. Today, pt is complaining of manic symptoms and alcohol and benzo withdrawal. Pt currently experiencing manic symptoms including racing thoughts, distractibility , and flight of ideas. She reports paranoia and appeared disorganized and internally preoccupied. She appeared disheveled and unkempt. She also reports depressed mood, and feelings of hopelessness and helplessness. Pt reports a long history of alcohol use since her teen years. States she relapsed one week ago and has been ingesting 1 pint of vodka per day for the past week. Pt's last drink was 5AM yesterday morning. Pt also admits to using Xanax and cocaine for a few years. States she has been using approximately 1-2.25mg of Xanax per day for the past week, as well as, $100 of cocaine (snort) and 5 hits of crack cocaine in the past 2 days. Notes that she has not taken her antipsychotic medication for the past 2 days. Pt denies all other substance abuse. History of 7-8 detoxes and 1 rehab. Pt complaining of shaking, anxiety and restlessness. Denies diaphoresis, nausea, vomiting, abdominal pain, tachycardia, and insomnia. States she is unsure if she has ever had a seizure. Pt's plan is to attend [facility] following discharge. Consultations:: List each consultation separately and include: 1. Reason for request. 2. Findings. 3. Follow-up Summary of Hospital Course include:: 1. Description of specific treatment plan utilized for patients during their course of treatmen. 2. Summarize the time- course for resolution of acute symptoms and/or regressed behaviors. 3. Describe issues identified and worked on during hospitalization. 4. Describe medication utilized. 5. Describe medical problems identified and treated. 6. Reassessment of suicide risk Summary of Hospital Course: During the course of her stay, patient (pt) started progressively improving and she no longer remained anxious, depressed, suicidal and paranoid. Her mood nd paranoia were getting better and she started attending groups and meetings and started socializing. The doses of her medications were maximized and patient denied any feelings of hopelessness, helplessness, and worthlessness, denied any problem with the sleep or appetite, denied suicidal ideation or homicidal ideation. Pt denied any auditory or visual hallucinations. Patient reported improvement in her mood and tolerated these medications very well and denied any side effects. - Final Diagnosis (DSM 5) Condition upon Discharge: STABLE DSM 5: Bipolar d/o - mixed Severe with psychotic features Alcohol use disorder-severe Alcohol withdrawal Benzodiazepine use disorder-moderate Cocaine use disorder moderate Disposition: HOME/ ROUTINE Follow-up Treatment Plan: Education: Pt was educated and counseled about the risks and benefits of taking and not taking medications. Pt was educated and counseled about the risks of drinking and abusing drugs. Pt was educated and counseled to go to the ER or call 911 if pt develop suicidal ideation or homicidal ideation, worsening of symptoms or severe side effects of the meds. Prescriptions/Medication Reconciliation: ARIPiprazole [Abilify] 10 mg PO DAILY #60 tab Aspirin 325 mg PO DAILY #30 tab Citalopram [celEXA] 20 mg PO DAILY #30 tab OXcarbazepine [Trileptal] 300 mg PO DAILY #30 tab OXcarbazepine [Trileptal] 600 mg PO QPM #14 tab Prazosin HCl [Minipress] 1 mg PO HS #30 cap traZODone [Desyrel] 100 mg PO HS #30 tab - Smoking Cessation Smoking Cessation Medication prescribed: No - Antipsychotic Medications Pt discharged on 2 or more routine antipsychotic medications: No
== END 2016-06-22 08:00 | disposition home or self-care (01) | DRG 430 ==
LOC: C.ER 11:56 → C.5E 16:00
PROVIDERS: ADMIT Psychiatry & Neurology Psychiatry; ATTEND Psychiatry & Neurology Psychiatry
PROC: GZHZZZZ Group Psychotherapy (ICD-10-PCS; principal; 2016-06-14)
PROC: GZ58ZZZ Individual Psychotherapy, Cognitive-Behavioral (ICD-10-PCS; 2016-06-14)
PROC: GZ56ZZZ Individual Psychotherapy, Supportive (ICD-10-PCS; 2016-06-14)
PROC: HZ2ZZZZ Detoxification Services for Substance Abuse Treatment (ICD-10-PCS; 2016-06-14)
PROC: HZ52ZZZ Individual Psychotherapy for Substance Abuse Treatment, Cognitive-Behavioral (ICD-10-PCS; 2016-06-14)
PROC: HZ59ZZZ Individual Psychotherapy for Substance Abuse Treatment, Supportive (ICD-10-PCS; 2016-06-14)
DX: F31.64 Bipolar disorder, current episode mixed, severe, with psychotic features (principal); I10 Essential (primary) hypertension; F14.90 Cocaine use, unspecified, uncomplicated; F10.239 Alcohol dependence with withdrawal, unspecified; F60.3 Borderline personality disorder; F43.10 Post-traumatic stress disorder, unspecified

== ENCOUNTER 2016-12-04 13:20 | Inpatient (IN) | payer MEDICAID, OTHER ==
[2016-12-04 13:20] VITALS: BMI 32.5
[2016-12-04 14:19] LABS: BASO % 0.6 % (0.0-2.0); EOS # 0.2 K/uL (0.0-0.7); EOS % 4.4 % (0.0-4.0); HEMATOCRIT 34.7 % (34.0-47.0); LYMPH # 1.8 K/uL (1.0-4.3); LYMPH % 35.1 % (20.0-40.0); MEAN CELL VOLUME 85.7 fL (81.0-99.0); MEAN CORPUSCULAR HEMOGLOBIN 29.3 pg (27.0-31.0); MEAN CORPUSCULAR HGB CONC 34.2 g/dL (33.0-37.0); MEAN PLATELET VOLUME 7.3 fL (7.2-11.7); MONO # 0.3 K/uL (0.0-0.8); MONO % 5.1 % (0.0-10.0); NRBC % 0.2 % (0.0-2.0); RED CELL DISTRIBUTION WIDTH 14.7 % (11.5-14.5); WHITE BLOOD COUNT 5.1 K/uL (4.8-10.8)
[2016-12-04 14:33] LABS: CHLORIDE 99 mmol/L (98-107); LITHIUM < 0.2 mmol/L (0.6-1.2); POTASSIUM 4.2 mmol/L (3.6-5.2); SODIUM 131 mmol/L (132-148)
[2016-12-04 14:35] LABS: BILIRUBIN,TOTAL 0.4 mg/dL (0.2-1.3); GFR AFRICAN-AMERICAN > 60
[2016-12-04 14:36] LABS: ALB/GLOB RATIO 1.1 (1.0-2.1); ALKALINE PHOSPHATASE 84 U/L (38-126); ALT/SGPT 29 U/L (9-52); AST/SGOT 28 U/L (14-36); BLOOD UREA NITROGEN 10 mg/dL (7-17); CALCIUM 8.8 mg/dl (8.6-10.4); CARBON DIOXIDE 24 mmol/L (22-30); GLUCOSE,RANDOM 90 mg/dL (65-105); TOTAL PROTEIN 7.3 g/dL (6.3-8.3)
[2016-12-04 14:37] LABS: ALCOHOL SERUM < 10 mg/dl (0-10)
[2016-12-04 15:29] LABS: URINE BILIRUBIN NEGATIVE (NEGATIVE); URINE BLOOD NEGATIVE (NEGATIVE); URINE COLOR Colorless (YELLOW); URINE GLUCOSE (UA) NORMAL (Normal); URINE KETONE NEGATIVE (NEGATIVE); URINE LEUKOCYTE ESTERASE NEG Leu/uL (Negative); URINE PROTEIN NEGATIVE (NEGATIVE); URINE UROBILINOGEN NORMAL mg/dL (0.2-1.0); WBC URINE 1 /hpf (0-5)
--- NOTE | 2016-12-04 16:44 | C.PDOC ---
History Of Present Illness Pt was brought in by her boyfriend because they stated that the patient developed suicidal thoughts today. She attempted to cut her wrists and take an overdose of Trazadone, but both time she was stopped by her boyfriend. Time Seen by Provider: 12/04/16 13:46 Chief Complaint (Nursing): Psychiatric Evaluation History Per: Patient, Other (Boyfriend) Onset/Duration Of Symptoms: Hrs (today) Current Symptoms Are (Timing): Still Present Suicide/Self Injury Attempted (Context): Cut Wrists Severity: Severe Associated Symptoms: Depression, Suicidal Thoughts Additional History Per: Prior Records, Boyfriend Past Medical History Reviewed: Historical Data, Nursing Documentation, Vital Signs Vital Signs: Last Vital Signs Temp 98.4 F 12/04/16 13:25 Pulse 92 H 12/04/16 13:25 Resp 16 12/04/16 13:25 BP 117/79 12/04/16 13:25 Pulse Ox 96 12/04/16 13:25 - Medical History PMH: Anxiety, Bipolar Disorder, Depression, HTN, Personality Disorder ( Borderline), Post Traumatic Stress Disorder - [facility] Procedures ALCOHOL DETOXIFICATION (05/02/14) DETOXIFICATION SERVICES FOR SUBSTANCE ABUSE TREATMENT (06/14/16) GROUP PSYCHOTHERAPY (06/14/16) INDIV PSYCHOTHERAPY FOR SUBSTANCE ABUSE TREATMENT, SUPPORT (06/14/16) INDIV PSYCHOTHERAPY FOR SUBSTANCE ABUSE, COGNITIV BEHAVIORAL (06/14/16) INDIVID PSYCHOTHERAP NEC (07/18/14) INDIVIDUAL PSYCHOTHERAPY, COGNITIVE-BEHAVIORAL (06/14/16) INDIVIDUAL PSYCHOTHERAPY, SUPPORTIVE (06/14/16) OTHER GROUP THERAPY (12/10/13) PSYCHIAT DRUG THERAP NEC (07/18/14) Family History: States: Unknown Family Hx - Social History Hx Tobacco Use: Yes Hx Alcohol Use: Yes Hx Substance Use: Yes - Immunization History Hx Tetanus Toxoid Vaccination: No Hx Influenza Vaccination: No Hx Pneumococcal Vaccination: No Review Of Systems Constitutional: Negative for: Fever Cardiovascular: Negative for: Chest Pain Respiratory: Negative for: Shortness of Breath Gastrointestinal: Negative for: Vomiting, Abdominal Pain Musculoskeletal: Negative for: Neck Pain Skin: Negative for: Rash Neurological: Negative for: Weakness, Numbness, Seizures Psych: Positive for: Anxiety, Depression, Suicidal ideation Physical Exam - Physical Exam Appears: Non-toxic, No Acute Distress, Other (Tearful) Skin: Normal Color, Warm, Dry, No Rash Head: Atraumatic, Normacephalic Eye(s): bilateral: PERRL, EOMI Neck: Normal ROM, Supple Cardiovascular: Rhythm Regular Respiratory: Normal Breath Sounds, No Accessory Muscle Use Gastrointestinal/Abdominal: Soft, No Tenderness Extremity: Normal ROM, Other (old/healed lacerations on b/l forearms.) Neurological/Psych: Oriented x3, Normal Motor, Normal Sensation ED Course And Treatment - Laboratory Results Result Diagrams: 12/04/16 14:13 12/04/16 14:13 Lab Interpretation: No Acute Changes Urine POC: Negative O2 Sat by Pulse Oximetry: 96 Pulse Ox Interpretation: Normal Progress Note: Pt is medically stable for psychiatric admission. Disposition Counseled Patient/Family Regarding: Studies Performed, Diagnosis, Smoking Cessation - Disposition Disposition: HOSPITALIZED Disposition Time: 16:47 Condition: STABLE - Clinical Impression Clinical Impression: Depression Decision To Admit - Pt Status Changed To: Hospital Disposition Of: Inpatient - Admit Certification Admit to Inpatient:: After my assessment, the patient will require hospitalization for at least two midnights. This is because of the severity of symptoms shown, intensity of services needed, and/or the medical risk in this patient being treated as an outpatient. - InPatient: Physician Admission Certification: I certify that this patient requires 2 or more midnights of care for the following reason:: Psych. - . Bed Request Type: Psychiatry Admitting Physician: Branden Steiner Patient Diagnosis: Depression
--- NOTE | 2016-12-04 18:55 | PCM.BM ---
<Meagan Walter - Last Filed: 12/04/16 18:53> Treatment Plan Problems - Problems identified on initial assessmt Depression Date Initiated: 12/04/16 Time Initiated: 17:45 Assessment reference: NA Status: Active Suicidal Ideation Date Initiated: 12/04/16 Time Initiated: 17:45 Assessment reference: NA Status: Active Treatment assets and liabiliti Patient Assests: adapts well, cooperative, ADL independent, physically healthy, negotiates basic needs, cognitively intact Patient Liabilities: live alone (lives with boyfriend), financial problems, poor support system, substance abuse (Cocaine), medical problems (HTN) - Milieu Protocol Maintain good personal hygiene: daily Encourage regular showers, daily Remind patient to perform daily oral care, other Assist patient to perform ADL's (Self) Maintain personal safety: every shift Educate patient to report safety concerns to staff, every shift Monitor environment for contraband/sharps Medication safety: Monitor for expected outcome, potential side effects: every shift, Assess barriers to learning: every shift, Assess readiness for medication education: every shift <Branden Steiner - Last Filed: 12/06/16 12:48> - Diagnosis (1) Suicide attempt Status: Acute Interventions: 12/06/16 12:49 * Assess/adjust medications daily and /or as needed * Discuss risks, benefits, side effects and alternatives of medications * See patient on an individual basis 7x/week to assess level of suicidal thoughts * (2) Depression, major, recurrent, severe with psychosis Status: Acute Interventions: 12/06/16 12:49 * Assess/adjust medications daily and /or as needed * See patient on an individual basis 7x/week to assess symptoms of depression * Monitor for side effects & effectiveness of medications * (3) Cocaine use disorder, moderate, dependence Status: Acute Interventions: 12/06/16 12:50 * Assess 7x/week regarding severity of withdrawal * Educate regarding risks, benefits, side effects and alternatives of medications * Use Motivational Interviewing for abstinence * Use CBT for relapse prevention * Medication management for withdrawal symptoms * Encourage medication assisted treatment * <Hillary Coyne - Last Filed: 12/08/16 10:41> Family Contact Family involvement: Famliy/SO not involved - Goals for Treatment Patient goals for treatment: "I need an outpatient program." Discharge/Continuing Care - Education Needs Education Needs: Patient Medication, Patient Coping Skills - Discharge Discharge Criteria: Tolerates medication w/o severe side effects, Free of Suicidal thoughts Discharge to:: Home - Treatment Team Participation Discussed with Family/SO: No Was Patient/Family/SO present at Treatment Team Meeting: Yes
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
--- NOTE | 2016-12-06 11:33 | PCM.PYCHPN ---
Psychiatric Progress Note - Psychiatric Progress Note Patient seen today, length of contact: 16 min Patient Chief Complaint: "I'm not doing well" Problems Identified/Issues Discussed: The pt is seen, chart reviewed, case discussed with staff. The pt is compliant with medications and reports no side-effects. Symptoms are improving very sloly but needs more time to stabilize. She c/o lots of anxiety, anger, mood swings. She somewhat demanded for more benzos but especially, Xanax, and then trileptal Ambien etc. After care discussed, but it is unclear as her living situation changes a lot support and psychoeducation given. Medication Change: Yes (add ambien and make klonopin TID) Medical Record Reviewed: Yes Mental Status Examination - Cognitive Function Orientation: Person, Place, Situation, Time Memory: Impaired Attention: Poor Concentration: Poor Association: WNL Fund of Knowledge: WNL - Mood Mood: Depressed, Anxious - Affect Affect: Constricted - Speech Speech: Appropriate - Formal Thought Process Formal Thought Process: Hallucinations, Paranoia - Suicidal Ideation Suicidal Ideation: No - Homicidal Ideation Homicidal Ideation: No Goal/Treatment Plan - Goal/Treatment Plan Need for Continued Stay: Discharge may exacerbated symptoms, Severe functional impairment Progress Toward Problem(s) and Goals/Treatment Plan: Lexapro for depression Prazosin for PTSD and anxiety Abilify for psychotic sxs and mood swings No trileptal as her Na is already low b/c of it As needed medications Low dose klonopin for anxiety (she was on it, [place] AIRCRAFT LOADMASTER SUPERINTENDENT checked) Gabapentin for augmentation Attend groups and activities Supportive therapy and psychoeducation [place] for abstinence from cocaine CBT for relapse prevention Refer to rehab or IOP DBT also advisable but she does not have a steady residence to attend Attend self-help groups as well Suicide precautions and CBT Estimated Date of D/C: 12/13/16
[2016-12-07] MEDS ORDERED: Pneumococcal 23-Valent Vaccine IM ONE (10:00)
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
--- NOTE | 2016-12-08 12:29 | PCM.PYCHPN ---
Psychiatric Progress Note - Psychiatric Progress Note Patient seen today, length of contact: 18 min Patient Chief Complaint: "I'm still not well" Problems Identified/Issues Discussed: The pt is seen, chart reviewed, case discussed with staff. Support given, psycho-education used [place] and CBT used labs ordered , she's tachy EKG ordered Still depressed, anxious, seeking meds She is still contemplating if she should stay or leave [place] A msg left to her BF with her permission. She is also not decided re break up or continue with him. Blames him of not caring for her. Medication Change: Yes Medical Record Reviewed: Yes Mental Status Examination - Cognitive Function Orientation: Person, Place, Situation, Time Memory: Impaired Attention: Poor Concentration: Poor Association: WNL Fund of Knowledge: WNL - Mood Mood: Depressed, Anxious - Affect Affect: Constricted - Speech Speech: Appropriate - Formal Thought Process Formal Thought Process: Hallucinations, Paranoia - Suicidal Ideation Suicidal Ideation: No - Homicidal Ideation Homicidal Ideation: No Goal/Treatment Plan - Goal/Treatment Plan Need for Continued Stay: Discharge may exacerbated symptoms, Severe functional impairment Progress Toward Problem(s) and Goals/Treatment Plan: Lexapro for depression Prazosin for PTSD and anxiety Abilify for psychotic sxs and mood swings No trileptal as her Na is already low b/c of it As needed medications Low dose klonopin for anxiety (she was on it, [place] ELECTROTYPER HELPER checked) Gabapentin for augmentation Attend groups and activities Supportive therapy and psychoeducation [place] for abstinence from cocaine CBT for relapse prevention Refer to rehab or IOP DBT also advisable but she does not have a steady residence to attend Attend self-help groups as well Suicide precautions and CBT Estimated Date of D/C: 12/13/16
[2016-12-08 14:21] LABS: CHLORIDE 101 mmol/L (98-107); POTASSIUM 4.1 mmol/L (3.6-5.2); SODIUM 133 mmol/L (132-148)
[2016-12-08 14:23] LABS: AST/SGOT 24 U/L (14-36); BILIRUBIN,TOTAL 0.3 mg/dL (0.2-1.3); CARBON DIOXIDE 19 mmol/L (22-30); GFR AFRICAN-AMERICAN > 60; TOTAL PROTEIN 8.6 g/dL (6.3-8.3)
[2016-12-08 14:24] LABS: ALKALINE PHOSPHATASE 79 U/L (38-126); ALT/SGPT 32 U/L (9-52); BLOOD UREA NITROGEN 10 mg/dL (7-17); CALCIUM 9.4 mg/dl (8.6-10.4); GLUCOSE,RANDOM 112 mg/dL (65-105)
[2016-12-08 14:40] LABS: FREE T4 1.08 ng/dL (0.78-2.19)
[2016-12-08 14:54] LABS: THYROID STIMULATING HORMONE 1.95 mIU/L (0.46-4.68)
--- NOTE | 2016-12-09 14:01 | PCM.PYCHPN ---
Psychiatric Progress Note - Psychiatric Progress Note Patient seen today, length of contact: 19 mins Patient Chief Complaint: "I'm okay I guess" Problems Identified/Issues Discussed: The pt is seen, chart reviewed, case discussed with staff. Pt reports that taking the Klonopin in the morning is really helping and is happy about this. Pt reports sleeping well last night. The pt is compliant with medications and reports no side-effects. Symptoms are improving but needs more time to stabilize. After care discussed, support and psychoeducation given. Pt is aware that she needs to remain in [place] in order to follow up with care, therapy and medications. Pt is encouraged to settle in [place] where she can receive continuous care. Pt states " I know, I'm hoping for a good life time in the future". Pt is encouraged to do so and speak with counselors and SW if needed. Pt is encouraged to talk to her boyfriend and set a meeting where we can all sit down and have a discussion. Medication Change: No Medical Record Reviewed: Yes Mental Status Examination - Cognitive Function Orientation: Person, Place, Situation, Time Memory: Impaired Attention: Poor Concentration: Poor Association: WNL Fund of Knowledge: WNL - Mood Mood: Depressed, Anxious - Affect Affect: Constricted - Speech Speech: Soft - Formal Thought Process Formal Thought Process: Paranoia - Suicidal Ideation Suicidal Ideation: No - Homicidal Ideation Homicidal Ideation: No Goal/Treatment Plan - Goal/Treatment Plan Need for Continued Stay: Discharge may exacerbated symptoms, Severe functional impairment Progress Toward Problem(s) and Goals/Treatment Plan: Lexapro for depression Prazosin for PTSD and anxiety Abilify for psychotic sxs and mood swings As needed medications Low dose klonopin for anxiety (she was on it, [place] GAS STATION OPERATOR checked) Gabapentin for augmentation Attend groups and activities Supportive therapy and psychoeducation [place] for abstinence from cocaine CBT for relapse prevention Refer to rehab or IOP DBT also advisable but she does not have a steady residence to attend Attend self-help groups as well Suicide precautions and CBT Estimated Date of D/C: 12/13/16
[2016-12-10] MEDS ORDERED: Magnesium Hydroxide Susp 30 ml UD PO ONE (14:00)
--- NOTE | 2016-12-10 15:00 | PCM.PYCHPN ---
Psychiatric Progress Note - Psychiatric Progress Note Patient seen today, length of contact: 17 mins Patient Chief Complaint: "Hanging in there, I guess" Problems Identified/Issues Discussed: The pt is seen, chart reviewed, case discussed with staff. Pt reports she is sleeping well, however, still describes her mood as "a little down". Pt states she has been in contact with her boyfriend over the phone and states says that if a meeting is set up with him he is likely to come. The pt is compliant with medications and reports no side-effects. Symptoms are improving but needs more time to stabilize. Still having suicidal thoughts on and off After care discussed, support and psychoeducation given. Pt is encouraged to attend groups, attend activities and talk to others. Pt will speak with counselors and SW if needed. Medication Change: Yes Medical Record Reviewed: Yes Mental Status Examination - Cognitive Function Orientation: Person, Place, Situation, Time Memory: Impaired Attention: Poor Concentration: Poor Association: WNL Fund of Knowledge: WNL - Mood Mood: Depressed, Anxious - Affect Affect: Constricted - Speech Speech: Soft - Formal Thought Process Formal Thought Process: Paranoia - Suicidal Ideation Suicidal Ideation: No - Homicidal Ideation Homicidal Ideation: No Goal/Treatment Plan - Goal/Treatment Plan Need for Continued Stay: Discharge may exacerbated symptoms, Severe functional impairment Progress Toward Problem(s) and Goals/Treatment Plan: Abilify 15mg PO HS new dose Continue as needed medications Lexapro for depression Prazosin for PTSD and anxiety Abilify for psychotic sxs and mood swings Low dose klonopin for anxiety (she was on it, [place] LEAD LAYING AND GLUING MACHINE OPERATOR checked) Gabapentin for augmentation Attend groups and activities Supportive therapy and psychoeducation [place] for abstinence from cocaine CBT for relapse prevention Refer to rehab or IOP DBT also advisable but she does not have a steady residence to attend Attend self-help groups as well Suicide precautions and CBT 17 mins Estimated Date of D/C: 12/14/16
--- NOTE | 2016-12-11 13:03 | PCM.PYCHPN ---
Psychiatric Progress Note - Psychiatric Progress Note Patient seen today, length of contact: 15 minutes Patient Chief Complaint: I still feel anxiety. Problems Identified/Issues Discussed: Patient seen, chart reviewed, case discussed with the staff. Issues related to illness and treatment were discussed with the patient. Reported compliant with treatment with no adverse affects. Tolerating treatment very well. Patient reported feeling little better. She still feels anxiety but it is less than before. Also reported that in the morning her mouth is dry after waking up. Patient reported snoring at times. Patient also reported having sleep attacks in the morning and cataplexy. Reported having some brief refreshing naps during the day. Patient may need sleep study to rule out sleep apnea. At the time of evaluation, patient was awake alert oriented 3, had no delusions , no auditory visual hallucinations, no suicidal ideations or homicidal ideations. Medical Problems: Hypertension Obesity Diagnostic Results: Reviewed DSM 5 Symptoms Update: Some improvement with treatment Medication Change: No Medical Record Reviewed: Yes Mental Status Examination - Cognitive Function Orientation: Person, Place, Situation, Time Memory: Intact Attention: WNL Concentration: WNL Association: WN Fund of Knowledge: [facility] Decription of patient's judgement and insights: Fair - Mood Mood: Anxious - Affect Affect: Flat - Speech Speech: Soft - Formal Thought Process Formal Thought Process: No Impairment - Suicidal Ideation Suicidal Ideation: No - Homicidal Ideation Homicidal Ideation: No Goal/Treatment Plan - Goal/Treatment Plan Need for Continued Stay: Remain at risks for inpatient hospitalization, Discharge may exacerbated symptoms, Severe functional impairment Progress Toward Problem(s) and Goals/Treatment Plan: Patient education Supportive therapy Continue treatment as before. Estimated Date of D/C: 12/14/16 - Smoking Cessation Smoking Cessation Initiated: Yes
--- NOTE | 2016-12-12 13:53 | PCM.PYCHPN ---
Psychiatric Progress Note - Psychiatric Progress Note Patient seen today, length of contact: 15 minutes Patient Chief Complaint: I'm feeling better. My pulse was also within normal limit. Problems Identified/Issues Discussed: Patient seen, chart reviewed, case discussed with the staff. Issues related to illness and treatment were discussed with the patient. Reported compliant with treatment with no adverse affects. Tolerating treatment very well. Patient reported feeling better. Also for prostate was also within normal limit. Patient was happy with that. At the time of evaluation, patient was awake alert oriented 3, had no delusions , no auditory visual hallucinations, no suicidal ideations or homicidal ideations. Medical Problems: Hypertension Obesity Diagnostic Results: Reviewed DSM 5 Symptoms Update: Improvement with treatment Medication Change: No Medical Record Reviewed: Yes Mental Status Examination - Cognitive Function Orientation: Person, Place, Situation, Time Memory: Intact Attention: WNL Concentration: WNL Association: WNL Fund of Knowledge: [facility] Decription of patient's judgement and insights: Fair - Mood Mood: Anxious (Less than before) - Affect Affect: Flat - Speech Speech: Soft - Formal Thought Process Formal Thought Process: No Impairment Psychotic Thoughts and Behaviors: None - Suicidal Ideation Suicidal Ideation: No - Homicidal Ideation Homicidal Ideation: No Goal/Treatment Plan - Goal/Treatment Plan Need for Continued Stay: Remain at risks for inpatient hospitalization, Discharge may exacerbated symptoms, Severe functional impairment Progress Toward Problem(s) and Goals/Treatment Plan: Patient education Supportive therapy Continue treatment as before. Estimated Date of D/C: 12/14/16 - Smoking Cessation Smoking Cessation Initiated: Yes
--- NOTE | 2016-12-13 12:43 | PCM.PYCHPN ---
Psychiatric Progress Note - Psychiatric Progress Note Patient seen today, length of contact: 17 min Patient Chief Complaint: "I feel better" Problems Identified/Issues Discussed: The pt is seen, chart reviewed, case discussed with staff. Pt reports she is sleeping well, however, still describes her mood as "a little down". Pt states she had another argument with her boyfriend over the phone and states that he may or may not come for a meeting today. (He didn't) Symptoms are improving but needs more time to stabilize. Still having suicidal thoughts on and off After care discussed, support and psychoeducation given. Pt is encouraged to attend groups, attend activities and talk to others. Pt discussed renting out a room from a former patient she met in the psych unit and will attend outpatient program. She is warned within confidentiality limits. Pt will speak with counselors and SW if needed. Medication Change: No Medical Record Reviewed: Yes Mental Status Examination - Cognitive Function Orientation: Person, Place, Situation, Time Memory: Intact Attention: WNL Concentration: WNL Association: WNL Fund of Knowledge: WNL - Mood Mood: Depressed, Anxious (Less than before) - Affect Affect: Constricted - Speech Speech: Soft - Formal Thought Process Formal Thought Process: No Impairment - Suicidal Ideation Suicidal Ideation: No - Homicidal Ideation Homicidal Ideation: No Goal/Treatment Plan - Goal/Treatment Plan Need for Continued Stay: Remain at risks for inpatient hospitalization, Discharge may exacerbated symptoms, Severe functional impairment Progress Toward Problem(s) and Goals/Treatment Plan: Abilify 20 mg new dose Continue as needed medications Lexapro for depression Prazosin for PTSD and anxiety Abilify for psychotic sxs and mood swings Low dose klonopin for anxiety (she was on it, [place] TRAFFIC REPRESENTATIVE checked) Gabapentin for augmentation Attend groups and activities Supportive therapy and psychoeducation [place] for abstinence from cocaine CBT for relapse prevention Refer to rehab or IOP DBT also advisable but she does not have a steady residence to attend Attend self-help groups as well Suicide precautions and CBT Estimated Date of D/C: 12/14/16 - Smoking Cessation Smoking Cessation Initiated: No
[2016-12-14 07:22] VITALS: O2SAT 98
--- NOTE | 2016-12-14 11:22 | PCM.PYCHPN ---
Psychiatric Progress Note - Psychiatric Progress Note Patient seen today, length of contact: 17 min Patient Chief Complaint: "I feel better" Problems Identified/Issues Discussed: The pt is seen, chart reviewed, case discussed with staff. The pt is compliant with medications and reports no side-effects. Symptoms are improving but needs more time to stabilize. After care discussed, support and psychoeducation given. BF "forgot" to come yesterday Also, she is still thinking about moving into / renting another male patient's room. She will go and visit with her BF Medication Change: No Medical Record Reviewed: Yes Mental Status Examination - Cognitive Function Orientation: Person, Place, Situation, Time Memory: Intact Attention: WNL Concentration: WNL Association: WNL Fund of Knowledge: WNL - Mood Mood: Depressed, Anxious (Less than before) - Affect Affect: Constricted - Speech Speech: Soft - Formal Thought Process Formal Thought Process: No Impairment - Suicidal Ideation Suicidal Ideation: No - Homicidal Ideation Homicidal Ideation: No Goal/Treatment Plan - Goal/Treatment Plan Need for Continued Stay: Remain at risks for inpatient hospitalization, Discharge may exacerbated symptoms, Severe functional impairment Progress Toward Problem(s) and Goals/Treatment Plan: Abilify 20 mg new dose Continue as needed medications Lexapro for depression Prazosin for PTSD and anxiety Abilify for psychotic sxs and mood swings Low dose klonopin for anxiety (she was on it, [place] HAY STACKER OPERATOR checked) Gabapentin for augmentation Attend groups and activities Supportive therapy and psychoeducation [place] for abstinence from cocaine CBT for relapse prevention Refer to rehab or IOP DBT also advisable but she does not have a steady residence to attend Attend self-help groups as well Suicide precautions and CBT Estimated Date of D/C: 12/15/16 If changed, why: not feeling well
[2016-12-14 16:21] VITALS: RESP 18
--- NOTE | 2016-12-14 19:29 | CARD ---
APPROVED REPORT EKG Measurement Heart [id number] <Conclusion> Sinus bradycardia Otherwise normal ECG
[2016-12-15 07:25] VITALS: BP 116/77; PULSE 111; TEMP 97.4
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
== END 2016-12-15 11:14 | disposition home or self-care (01) | DRG 885 ==
LOC: C.ER 13:20 → C.5E 16:48
PROVIDERS: ADMIT Psychiatry & Neurology Psychiatry; ATTEND Psychiatry & Neurology Psychiatry
PROC: GZ3ZZZZ Medication Management (ICD-10-PCS; principal; 2016-12-04)
PROC: GZHZZZZ Group Psychotherapy (ICD-10-PCS; 2016-12-04)
PROC: HZ36ZZZ Individual Counseling for Substance Abuse Treatment, Psychoeducation (ICD-10-PCS; 2016-12-04)
PROC: HZ59ZZZ Individual Psychotherapy for Substance Abuse Treatment, Supportive (ICD-10-PCS; 2016-12-04)
PROC: GZ56ZZZ Individual Psychotherapy, Supportive (ICD-10-PCS; 2016-12-04)
DX: F33.3 Major depressive disorder, recurrent, severe with psychotic symptoms (principal); F14.20 Cocaine dependence, uncomplicated; R45.851 Suicidal ideations; Z68.41 Body mass index [BMI] 40.0-44.9, adult; G47.411 Narcolepsy with cataplexy; F60.3 Borderline personality disorder; F41.0 Panic disorder [episodic paroxysmal anxiety]; F31.9 Bipolar disorder, unspecified; F17.210 Nicotine dependence, cigarettes, uncomplicated; F10.10 Alcohol abuse, uncomplicated; I10 Essential (primary) hypertension; E66.9 Obesity, unspecified; Z91.410 Personal history of adult physical and sexual abuse

== ENCOUNTER 2017-11-09 19:43 | Inpatient (IN) | payer MEDICARE, SELFPAY ==
[2017-11-09 19:44] VITALS: BMI 32.5
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
[2017-11-09 21:13] LABS: BASO % 0.4 % (0.0-2.0); EOS # 0.2 K/uL (0.0-0.7); EOS % 2.9 % (0.0-4.0); LYMPH # 2.1 K/uL (1.0-4.3); LYMPH % 30.9 % (20.0-40.0); MEAN CELL VOLUME 81.2 fL (81.0-99.0); MEAN CORPUSCULAR HEMOGLOBIN 28.6 pg (27.0-31.0); MEAN CORPUSCULAR HGB CONC 35.2 g/dL (33.0-37.0); MEAN PLATELET VOLUME 7.1 fL (7.2-11.7); MONO # 0.4 K/uL (0.0-0.8); MONO % 6.1 % (0.0-10.0); NEUT # 4.1 K/uL (1.8-7.0); NEUT % 59.7 % (50.0-75.0); NRBC % 0.1 % (0.0-2.0); RBC 4.56 Mil/uL (3.80-5.20); RED CELL DISTRIBUTION WIDTH 16.2 % (11.5-14.5); WHITE BLOOD COUNT 6.8 K/uL (4.8-10.8)
[2017-11-09 22:11] LABS: ALB/GLOB RATIO 1.3 (1.0-2.1); ALBUMIN 4.6 g/dL (3.5-5.0); ALT/SGPT 91 U/L (9-52); AST/SGOT 67 U/L (14-36); BLOOD UREA NITROGEN 7 mg/dL (7-17); CALCIUM 9.8 mg/dl (8.6-10.4); GFR NON-AFRICAN AMERICAN > 60
[2017-11-09 22:30] LABS: HCG,QUALITATIVE URINE NEGATIVE (NEGATIVE)
[2017-11-09 22:34] LABS: SQUAMOUS EPITHIAL 11 /hpf (0-5); URINE BACTERIA OCC (<OCC); URINE BILIRUBIN NEGATIVE (NEGATIVE); URINE BLOOD NEGATIVE (NEGATIVE); URINE CLARITY Hazy (Clear); URINE COLOR Yellow (YELLOW); URINE GLUCOSE (UA) NORMAL (Normal); URINE LEUKOCYTE ESTERASE TRACE Leu/uL (Negative); URINE PROTEIN 1+ mg/dL (NEGATIVE)
[2017-11-09 22:52] LABS: BARBITURATES, UR NEGATIVE (NEGATIVE); BENZODIAZEPINES, UR NEGATIVE (NEGATIVE); OPIATES, UR NEGATIVE (NEGATIVE); PHENCYCLIDINE, UR NEGATIVE (NEGATIVE)
[2017-11-10 01:44] VITALS: O2SAT 100
--- NOTE | 2017-11-10 02:56 | PCM.BM ---
<Jo Conde - Last Filed: 11/10/17 02:53> Treatment Plan Problems - Problems identified on initial assessmt Boroline personality Desorder Date Initiated: 11/10/17 Time Initiated: 02:53 Date resolved: 11/10/17 Assessment reference: NA Status: Active (anxious and paranoid.) Treatment assets and liabiliti Patient Assests: adapts well, cooperative, insightful, motivated, ADL independent, physically healthy, negotiates basic needs, cognitively intact Patient Liabilities: poor support system - Milieu Protocol Maintain good personal hygiene: daily Encourage regular showers, daily Remind patient to perform daily oral care, daily Assist patient to perform ADL's Maintain personal safety: every shift Educate patient to report safety concerns to staff, every shift Monitor environment for contraband/sharps Medication safety: Monitor for expected outcome, potential side effects: every shift, Assess barriers to learning: every shift, Assess readiness for medication education: every shift <Katya Grace - Last Filed: 11/11/17 11:45> - Diagnosis (1) Bipolar 1 disorder Status: Acute Interventions: 11/11/17 11:45 * Assess/adjust medications daily and /or as needed * See patient on an individual basis 7x/week to assess level of manic behaviors and stability * Discuss risks, benefits, side effects and alternatives of medications * <Hillary Coyne - Last Filed: 11/11/17 11:49> Family Contact Family involvement: Famliy/SO not involved - Goals for Treatment Patient goals for treatment: "I want to go home." Discharge/Continuing Care - Education Needs Education Needs: Patient Medication, Patient Coping Skills - Discharge Discharge Criteria: Tolerates medication w/o severe side effects, Reduction of target symptoms Discharge to:: Home - Treatment Team Participation Discussed with Family/SO: No Was Patient/Family/SO present at Treatment Team Meeting: Yes
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
[2017-11-10] MEDS ORDERED: Prazosin HCL 2 mg PO SCH (22:00)
[2017-11-11 06:47] VITALS: BP 97/63; PULSE 76; RESP 18; TEMP 97.8
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
== END 2017-11-11 13:30 | disposition home or self-care (01) | DRG 885 ==
LOC: C.ER 19:43 → C.5E 11-10 00:40 → C.ER 11-10 01:43
PROVIDERS: ADMIT Psychiatry & Neurology Psychiatry; ATTEND Psychiatry & Neurology Psychiatry
DX: F31.64 Bipolar disorder, current episode mixed, severe, with psychotic features (principal); Z68.41 Body mass index [BMI] 40.0-44.9, adult; F43.10 Post-traumatic stress disorder, unspecified; F60.3 Borderline personality disorder; G47.00 Insomnia, unspecified; F10.10 Alcohol abuse, uncomplicated; F14.10 Cocaine abuse, uncomplicated; F17.210 Nicotine dependence, cigarettes, uncomplicated; F41.0 Panic disorder [episodic paroxysmal anxiety]; I10 Essential (primary) hypertension; L29.9 Pruritus, unspecified; E66.01 Morbid (severe) obesity due to excess calories